=== PATIENT | male | born 1970 | race Caucasian/White ===

== ENCOUNTER 2019-08-24 11:04 | Emergency (ER) | payer SELFPAY ==
[2019-08-24 11:17] VITALS: BP 151/95; PULSE 101; RESP 16; TEMP 36.6; O2SAT 99
--- NOTE | 2019-08-24 11:22 | ED.URI ---
HPI - URI/Sore Throat General Chief Complaint: Unspecified Stated Complaint: cough Time Seen by Provider: 08/24/19 11:23 Source: patient and RN notes reviewed Mode of arrival: ambulatory Limitations: no limitations History of Present Illness HPI Narrative: This is a 48 years old male presented office for an evaluation of right-sided ribs pain since yesterday. He stated he normally has smoker cough; but yesterday he cough very hard that he heard a pop. Denies pain at rest except when he coughs/sneezes or walking. He has to go home early yesterday because he do a lot of walking at work which was very uncomfortable for him. He took Aleve for his pain. Denies chest trauma or injury. Denies shortness of breath or difficulty or hurt to take a deep breath. Denies rib fracture in the past. He does not have a primary care doctor or insurance. Related Data Allergies Allergy/AdvReac Type Severity Reaction Status Date / Time No Known Allergies Allergy Verified 08/24/19 11:24 Review of Systems Review of Systems: Narrative: CONSTITUTIONAL: Denies fever or feeling ill ENT: Denies congestion CARDIOVASCULAR: Denies chest pain, palpitation. Reports right side ribs pain RESPIRATORY: Denies dyspnea, wheezing. Reports occasional cough GASTROINTESTINAL: Denies abdominal pain, nausea, vomiting GENITOURINARY: Denies urinary symptoms or discharge SKIN: Denies rash MUSCULOSKELETAL: Denies acute back pain NEUROLOGIC: Denies lightheaded PMFSH Social History Social History (Updated 08/24/19 @ 11:23 by TAISHA Huber) Smoking status: Current every day smoker Gender identity (if verbalized by the patient): Male Comments At time of signature, I agree with nursing past medical, surgical, social and family history. There is no relevant family history pertinent to the presenting complaint. Exam Narrative: Exam Narrative: GENERAL: This is a well-nourished, well-developed patient, in no apparent distress. EARS: External ears normal, auditory canals clear and without drainage, TMs normal without perforation. Hearing grossly intact. NOSE: External nose normal with no obvious nasal discharge, nares without redness, no rhinorrhea. THROAT: Mucous membranes moist, posterior pharynx clear. NECK: Neck supple, non-tender without lymphadenopathy, masses or thyromegaly. CARDIOVASCULAR: Regular rate and rhythm without murmurs, gallops, or rubs. RESPIRATORY: Clear to auscultation. Breath sounds equal bilaterally. No wheezes, rales, or rhonchi. GASTROINTESTINAL: Abdomen soft, non-tender, nondistended. Bowel sounds are active. No hepato-splenomegaly, or palpable masses. No guarding. SKIN: warm, intact with no suspicious lesions or rash, good texture and turgor. NEURO: awake, alert, and oriented to person, place and time. There were no obvious focal neurologic abnormalities. Steady gait Anna Coma Scale Eye Opening: Spontaneous 4 Anna Coma Scale Motor: Obeys Commands 6 Frankie Coma Scale Verbal: Oriented 5 Course Vital Signs Vital signs: Vital Signs Temperature 97.8 F 08/24/19 11:17 Pulse Rate 101 H 08/24/19 11:17 Respiratory Rate 16 08/24/19 11:17 Blood Pressure 151/95 H 08/24/19 11:17 Pulse Oximetry 99 08/24/19 11:17 Temperature 97.8 F 08/24/19 11:17 Pulse Rate 101 H 08/24/19 11:17 Respiratory Rate 16 08/24/19 11:17 Blood Pressure 151/95 H 08/24/19 11:17 Pulse Oximetry 99 08/24/19 11:17 MDM - URI/Sore Throat MDM Narrative Medical decision making narrative: I recommend that he get a chest x-ray to rule out rib fractures based on his symptom, patient declined because he does not have insurance. He only wants some pain relief and work note. Elevated BP noted: patient is informed that they may have pre-hypertension or hypertension based on a blood pressure reading in the department. I recommend the patient call the primary care provider listed on their discharge instructions or a physician of their choice
== END 2019-08-24 11:41 | disposition home or self-care (01) ==
PROVIDERS: Emergency Provider Nurse Practitioner
DX: R07.81 Pleurodynia (principal); F17.200 Nicotine dependence, unspecified, uncomplicated
CPT/HCPCS: 99213; G0463